=== PATIENT | female | born 1970 | race Two or more races ===

== ENCOUNTER 2017-04-22 08:39 | Outpatient (CLI) | payer OTHER | END 2017-04-22 08:45 | disposition home or self-care (01) | LOC: SONOGRAMA 08:39 → MAMO-SONO 08:45 → SONOGRAMA 08:45 | DX: K80.10 Calculus of gallbladder with chronic cholecystitis without obstruction (principal) ==

== ENCOUNTER 2017-05-08 05:15 | Day surgery (SDC) | payer OTHER | END 2017-05-08 12:00 | disposition home or self-care (01) | LOC: CIR.AMB 05:15 | DX: K80.10 Calculus of gallbladder with chronic cholecystitis without obstruction (principal) ==